=== PATIENT | female | born 1965 | race Caucasian/White ===

== ENCOUNTER → 2016-07-06 11:03 | Outpatient (CLI) | payer MEDICAID | END | disposition home or self-care (01) | LOC: D.CT 11:00 | DX: R05 Cough (principal) ==

== ENCOUNTER 2016-07-06 15:29 | Emergency (ER) | payer MEDICAID | END 2016-07-06 16:50 | disposition home or self-care (01) | LOC: D.ER 15:29 | DX: S49.91XA Unspecified injury of right shoulder and upper arm, initial encounter (principal); X58.XXXA Exposure to other specified factors, initial encounter; Y93.89 Activity, other specified; Y92.89 Other specified places as the place of occurrence of the external cause; F32.9 Major depressive disorder, single episode, unspecified; F17.200 Nicotine dependence, unspecified, uncomplicated ==

== ENCOUNTER → 2016-09-30 16:17 | Outpatient (CLI) | payer BC | END | disposition home or self-care (01) | LOC: D.MAMMO 09:30 | DX: R92.8 Other abnormal and inconclusive findings on diagnostic imaging of breast (principal) ==

== ENCOUNTER → 2017-09-02 13:44 | Outpatient (CLI) | payer MEDICAID ==
[2017-09-10 04:43] LABS: IMMUNOGLOBULIN E 53 IU/mL (0-100)
== END | disposition home or self-care (01) ==
LOC: D.LAB 13:00 → D.RT 14:00
PROVIDERS: Internal Medicine Pulmonary Disease
DX: J44.9 Chronic obstructive pulmonary disease, unspecified (principal); R06.09 Other forms of dyspnea

== ENCOUNTER → 2018-11-30 08:00 | Outpatient (CLI) | payer MEDICAID | END | disposition home or self-care (01) | LOC: D.MAMMO 08:00 | PROVIDERS: ATTEND Emergency Medicine | DX: Z12.31 Encounter for screening mammogram for malignant neoplasm of breast (principal) ==

== ENCOUNTER 2019-05-16 13:16 | Emergency (ER) | payer MEDICAID ==
[2019-05-16 13:24] VITALS: Wt 77.3 kg
[2019-05-16] MEDS ORDERED: VOLTAREN75 MG PO (15:46)
[2019-05-16] MEDS ORDERED: BACLOFEN20 M1 PO (15:46)
[2019-05-16 16:04] VITALS: BP 138/70
== END 2019-05-16 16:10 | disposition home or self-care (01) ==
LOC: D.ER 13:16
DX: S59.901A Unspecified injury of right elbow, initial encounter (principal); W19.XXXA Unspecified fall, initial encounter; Y93.9 Activity, unspecified; Y92.9 Unspecified place or not applicable; J45.909 Unspecified asthma, uncomplicated; Z72.0 Tobacco use